=== PATIENT | male | born 1950 | race Caucasian/White ===

== ENCOUNTER 2019-12-29 10:04 | Emergency (ER) | payer OTHER, SELFPAY ==
[2019-12-29 10:28] VITALS: BP 169/83; PULSE 74; RESP 16; TEMP 37.1; O2SAT 97
--- NOTE | 2019-12-29 10:37 | ED.URI ---
HPI - URI/Sore Throat General Chief Complaint: Upper Respiratory Infection Stated Complaint: Sore Throat/Earache Time Seen by Provider: 12/29/19 10:38 Source: patient and RN notes reviewed Mode of arrival: ambulatory Limitations: no limitations History of Present Illness HPI Narrative: 69-year-old male with history of diabetes presents with concern for cough, chest congestion, ear pain, sore throat, nasal drainage, sinus pressure. Reports taking Tessalon Perles with no relief. Reports history of bronchitis. MD elicited complaint: sore throat Related Data Home Medications Medication Instructions Recorded Confirmed Vitamin B-12 12/29/19 Vitamin D2 12/29/19 aspirin 12/29/19 atenolol 100 mg PO DAILY 12/29/19 12/29/19 diazepam 12/29/19 flunisolide INTRANASAL 12/29/19 glimepiride mg 12/29/19 hydrochlorothiazide 25 mg PO DAILY 12/29/19 12/29/19 ketorolac 12/29/19 metformin mg 12/29/19 naproxen 12/29/19 polymyxin B sulf-trimethoprim 12/29/19 potassium chloride meq PO 12/29/19 prednisolone acetate 12/29/19 simvastatin mg 12/29/19 venlafaxine mg PO 12/29/19 Allergies Allergy/AdvReac Type Severity Reaction Status Date / Time No Known Allergies Allergy Verified 06/30/19 10:58 Review of Systems Review of Systems: Narrative: CONSTITUTIONAL: Reports malaise, fever. Denies chills, sweats EYES: Denies visual changes, redness, or discharge. ENT: Reports rhinorrhea, congestion, sinus pain, otalgia and sore throat. CARDIOVASCULAR: Denies chest pain, palpitations, or edema. RESPIRATORY: Reports cough, chest congestion. Denies dyspnea. GASTROINTESTINAL: Denies abdominal pain, nausea, vomiting, diarrhea SKIN: Denies rash or itching. MUSCULOSKELETAL: Reports myalgia. NEUROLOGIC: Denies headache. All systems reviewed & are unremarkable except as noted in HPI and below PMFSH Social History Social History Alcohol intake: current Comments At time of signature, agree with nursing past medical, surgical, social and family history. There is no relevant family history pertinent to the presenting complaint Exam Narrative: Exam Narrative: GENERAL: Well-appearing, well-nourished, and in no acute distress. HEAD: Normocephalic EYES: PERRLA, conjunctivae clear ENT: Nares clear, turbinates edematous and erythematous, sinus tenderness discharge. Mucous membranes moist. TM pearly charles with dull light reflex bilaterally; no tragal tenderness. Oropharynx erythematous without lesions. Tonsils enlarged and without exudate, no drooling, no hoarseness, no trismus. NECK: Supple. No lymphadenopathy CHEST: Clear to auscultation, breath sounds equal. No wheezing, rhonchi, rales, or stridor. No respiratory distress, speaks in full sentences. Cough noted HEART: Regular rate and rhythm. No murmur heard. Normal peripheral pulses. SKIN: Warm, dry, no rash. NEURO: Alert and oriented x3. PSYCH: Normal mood and affect Course Course Emergency Course: Patient is aware of diagnosis, understands and agrees to treatment plan. Anticipatory guidance given. Patient agrees to follow-up as directed and is aware of reasons to seek care at the emergency department. Portions of this record may have been created with voice recognition software Vital Signs Vital signs: Vital Signs Temperature 98.8 F 12/29/19 10:28 Pulse Rate 74 12/29/19 10:28 Respiratory Rate 16 12/29/19 10:28 Blood Pressure 169/83 H 12/29/19 10:28 Pulse Oximetry 97 12/29/19 10:28 Temperature 98.8 F 12/29/19 10:28 Pulse Rate 74 12/29/19 10:28 Respiratory Rate 16 12/29/19 10:28 Blood Pressure 169/83 H 12/29/19 10:28 Pulse Oximetry 97 12/29/19 10:28 Reviewed. Patient has current diagnosis of hypertension MDM - URI/Sore Throat MDM Narrative Medical decision making narrative: Differential diagnosis considered: Strep pharyngitis, allergic rhinitis, upper respiratory tract infection, sinusitis, rhinosinusitis, nasopharyngitis. viral pharyngitis, o
== END 2019-12-29 10:49 | disposition home or self-care (01) ==
PROVIDERS: Emergency Provider Nurse Practitioner; PCP Family Medicine Adolescent Medicine
DX: J32.9 Chronic sinusitis, unspecified (principal); J40 Bronchitis, not specified as acute or chronic; E78.00 Pure hypercholesterolemia, unspecified; I10 Essential (primary) hypertension; E55.9 Vitamin D deficiency, unspecified; E53.9 Vitamin B deficiency, unspecified; E11.9 Type 2 diabetes mellitus without complications; F41.9 Anxiety disorder, unspecified
CPT/HCPCS: 99213; G0463

== ENCOUNTER 2020-02-28 11:02 | Emergency (ER) | payer OTHER, SELFPAY ==
[2020-02-28 11:14] VITALS: BP 154/88; PULSE 54; RESP 16; TEMP 36; O2SAT 98
--- NOTE | 2020-02-28 11:26 | ED.URI ---
HPI - URI/Sore Throat General Chief Complaint: Upper Respiratory Infection Stated Complaint: sore throat Source: patient and RN notes reviewed Mode of arrival: ambulatory Limitations: no limitations History of Present Illness HPI Narrative: This is a 70 years old male presented to the office for an evaluation of right ear pain and head congestion for one week. Symptoms include head congestion, right ear pain and sore throat. Denies cough, fever. He tried otc ear drops with no relief. 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 Related Data Home Medications Medication Instructions Recorded Confirmed Vitamin B-12 12/29/19 Vitamin D2 12/29/19 aspirin 12/29/19 atenolol 100 mg PO DAILY 12/29/19 12/29/19 diazepam 12/29/19 flunisolide INTRANASAL 12/29/19 glimepiride mg 12/29/19 hydrochlorothiazide 25 mg PO DAILY 12/29/19 12/29/19 ketorolac 12/29/19 metformin mg 12/29/19 naproxen 12/29/19 polymyxin B sulf-trimethoprim 12/29/19 potassium chloride meq PO 12/29/19 prednisolone acetate 12/29/19 simvastatin mg 12/29/19 venlafaxine mg PO 12/29/19 lisinopril 02/28/20 loratadine 02/28/20 pantoprazole [Protonix] PO 02/28/20 sertraline 02/28/20 Allergies Allergy/AdvReac Type Severity Reaction Status Date / Time No Known Allergies Allergy Verified 06/30/19 10:58 Review of Systems Review of Systems: Narrative: CONSTITUTIONAL: Denies fever, chills ENT: Denies nasal congestion. Reports right ear pain and throat pain when he swallows only. CARDIOVASCULAR: Denies chest pain RESPIRATORY: Denies dyspnea, wheezing, cough GASTROINTESTINAL: Denies abdominal pain, nausea, vomiting SKIN: Denies rash MUSCULOSKELETAL: Denies acute back pain NEUROLOGIC: Denies lightheaded/dizziness PMFSH Past Medical History Medical History Anxiety Cataract, right eye Diabetes mellitus, type II Ganglion cyst of dorsum of right wrist 2015 Ganglion cyst of finger of left hand GERD (gastroesophageal reflux disease) HLD (hyperlipidemia) HTN (hypertension) PTSD (post-traumatic stress disorder) Vitamin deficiency Surgical History Surgical History S/P right knee arthroscopy Social History Social History (Updated 02/28/20 @ 11:59 by YOANDY Moreno) Smoking status: Never smoker Alcohol intake: current Comments At time of signature, I agree with nursing past medical, surgical, social and family history. There is no relevant family history pertinent to the presenting complaint. Exam Narrative: Exam Narrative: GENERAL: This is a well-nourished, well-developed patient, in no apparent distress. EYES:Sclera clear/white. Vision is grossly intact. EARS: External ears normal, tragal tenderness on right ear, right auditory canal appears erythem and edematou, left canal normal/clear and without drainage, bilateral TM noted fluid levell without bulging or perforation. Hearing grossly intact. NOSE: External nose normal with no obvious nasal discharge, nares without redness, no rhinorrhea. THROAT: Mucous membranes moist, posterior pharynx clear. NECK: Neck supple, non-tender without lymphadenopathy, masses or thyromegaly. CARDIOVASCULAR: Regular rate and rhythm without murmurs, gallops, or rubs. RESPIRATORY: Clear to auscultation. Breath sounds equal bilaterally. No wheezes, rales, or rhonchi. GASTROINTESTINAL: Abdomen soft, non-tender, nondistended. Bowel sounds are active. No guarding. NEURO: awake, alert, and oriented to person, place and time. There were no obvious focal neurologic abnormalities. Steady gait Marv Coma Scale Eye Opening: Spontaneous 4 Marv Coma Scale Motor: Obeys Commands 6 [place] Coma Scale Verbal: Oriented 5 Course Vital Signs Vital signs: Vital Signs Temperature 96.8 F L 02/28/20 11:14 Pulse Rate 54 L 02/28/20 11:14 Re
== END 2020-02-28 11:58 | disposition home or self-care (01) ==
PROVIDERS: Emergency Provider Nurse Practitioner; PCP Family Medicine Adolescent Medicine
DX: H60.331 Swimmer's ear, right ear (principal); H65.01 Acute serous otitis media, right ear; E11.9 Type 2 diabetes mellitus without complications; E78.5 Hyperlipidemia, unspecified; I10 Essential (primary) hypertension
CPT/HCPCS: 99213; G0463

== ENCOUNTER 2020-06-14 13:31 | Outpatient (CLI) | payer OTHER, SELFPAY ==
--- NOTE | 2020-06-14 | ECG_ITS ---
Measurements Intervals Josephine Rate: 56 P: 7 [place]: 204 QRS: -20 QRSD: 98 T: 34 QT: 423 QTc: 408 Interpretive Statements SINUS BRADYCARDIA WITH SINUS ARRHYTHMIA BORDERLINE AV CONDUCTION DELAY BORDERLINE R WAVE PROGRESSION, ANTERIOR LEADS BASELINE ARTIFACT- I, III, AVL, AVF, V4-V6 BORDERLINE ECG Electronically Signed On 06-14-2020 14:17:47 CDT by Ge Carbone D.O.
[2020-06-14 15:39] LABS: Anion Gap 10 mmol/L (8-16); Blood Urea Nitrogen 12 mg/dL (9-20); Calcium 9.4 mg/dL (8.4-10.2); Carbon Dioxide 26 mmol/L (22-30); Chloride 100 mmol/L (98-107); Estimated Glomerular Filt Rate > 60; Glucose 123 mg/dL (75-110); Sodium 136 mmol/L (137-145)
== END 2020-06-14 13:32 | disposition home or self-care (01) ==
PROVIDERS: PCP Family Medicine Adolescent Medicine; Visit Provider Podiatrist Foot & Ankle Surgery
DX: I10 Essential (primary) hypertension (principal); R94.31 Abnormal electrocardiogram [ECG] [EKG]
CPT/HCPCS: 36415; 80048; 93005

== ENCOUNTER 2020-11-22 10:54 | Emergency (ER) | payer OTHER, SELFPAY ==
[2020-11-22 11:06] VITALS: BP 149/80; PULSE 58; RESP 18; TEMP 36.4; O2SAT 99
--- NOTE | 2020-11-22 11:13 | ED.WOUNDLAC ---
HPI - Wound/Laceration General Chief Complaint: Wound/Laceration Stated Complaint: laceration left index finger History of Present Illness HPI narrative: This is a 70-year-old male comes in complaining of a laceration to his left second finger. Patient states that he cut it cutting a salad yesterday and placed a liquid Band-Aid on it today he went to take a shower and took off the bandage and it began to bleed. Patient states that he has had a tetanus shot within the last 5 years Related Data Home Medications Medication Instructions Recorded Confirmed Vitamin B-12 12/29/19 Vitamin D2 12/29/19 atenolol 100 mg PO DAILY 12/29/19 12/29/19 diazepam 12/29/19 flunisolide INTRANASAL 12/29/19 hydrochlorothiazide 25 mg PO DAILY 12/29/19 12/29/19 metformin mg 12/29/19 naproxen 12/29/19 potassium chloride meq PO 12/29/19 simvastatin mg 12/29/19 venlafaxine mg PO 12/29/19 lisinopril 02/28/20 sertraline 02/28/20 Allergies Allergy/AdvReac Type Severity Reaction Status Date / Time No Known Allergies Allergy Verified 11/22/20 10:59 Review of Systems Review of Systems: Narrative: CONSTITUTIONAL: Denies fever, chills, or sweats. EYES: Denies visual changes, redness, or discharge. ENT: Denies rhinorrhea, congestion, sore throat, or otalgia. CARDIOVASCULAR:Denies chest pain, palpitations, or edema. RESPIRATORY: Denies cough or dyspnea. GASTROINTESTINAL: Denies abdominal pain, nausea, vomiting, or diarrhea. GENITOURINARY: Denies dysuria or hematuria. SKIN:[Denies rash or itching. Left second finger laceration approximately 1 cm slightly approximately MUSCULOSKELETAL:Denies back pain, joint pain, or myalgia. NEUROLOGIC: Denies headache, numbness, or weakness. PSYCHIATRIC:Denies anxiety or depression [facility] Past Medical History Medical History (Updated 11/22/20 @ 11:27 by Kristin Michelle NP) Anxiety Cataract, right eye Diabetes mellitus, type II Ganglion cyst of dorsum of right wrist 2015 Ganglion cyst of finger of left hand GERD (gastroesophageal reflux disease) HLD (hyperlipidemia) HTN (hypertension) PTSD (post-traumatic stress disorder) Vitamin deficiency Surgical History Surgical History S/P right knee arthroscopy Social History Social History (Updated 02/28/20 @ 11:59 by YOANDY Moreno) Smoking status: Never smoker Alcohol intake: current Gender identity (if verbalized by the patient): Male Comments At time as signature, I have reviewed and agree with nursing past medical, social, surgical and family history. Please see nursing chart for further information. There is no relevant family history pertinent to the presenting complaint. Your blood pressure was elevated in the clinic today, I feel that this is due to your acute illness rather than essential hypertension. please follow-up with your regular doctor for further evaluation and monitor for evaluation of hypertension Please [facility] schedule a followup visit with your personal physician with in the next 1-4 weeks for further evaluation and treatment. Also, ask your personal physician to assist you regarding blood pressure. Even blood pressure exceeding 120/80 may indicate pre-hypertension. If your symptoms persist, change or worsen significantly before you can contact your personal physician then please, without delay, go to the emergency department for further evaluation. Exam Narrative: Exam Narrative: GENERAL:Well-appearing, well-nourished, and in no acute distress. HEAD:Normocephalic, atraumatic. EYES: PERRLA and EOMI. ENT: Nares clear, no rhinorrhea or epistaxis. Mucous membranes moist. NECK: Supple. CHEST: Clear to auscultation. No respiratory distress. HEART: Regular rate and rhythm. No murmur heard. Normal peripheral pulses. ABDOMEN: Soft, nontender, nondistended, normal active bowel sounds. EXTREMITIES: Normal range of motion. left second finger has slight bru
== END 2020-11-22 11:35 | disposition home or self-care (01) ==
PROVIDERS: Emergency Provider Nurse Practitioner Family; PCP Family Medicine Adolescent Medicine
DX: S61.211A Laceration without foreign body of left index finger without damage to nail, initial encounter (principal); W45.8XXA Other foreign body or object entering through skin, initial encounter; Y93.G1 Activity, food preparation and clean up; E11.9 Type 2 diabetes mellitus without complications; K21.9 Gastro-esophageal reflux disease without esophagitis; E78.5 Hyperlipidemia, unspecified; I10 Essential (primary) hypertension; E11.36 Type 2 diabetes mellitus with diabetic cataract; H26.9 Unspecified cataract; Z79.84 Long term (current) use of oral hypoglycemic drugs
CPT/HCPCS: 12001; 99212; G0463

== ENCOUNTER 2020-11-27 09:24 | Emergency (ER) | payer OTHER, SELFPAY ==
--- NOTE | 2020-11-27 09:35 | ED.WOUNDLAC ---
HPI - Wound/Laceration General Chief Complaint: Wound/Laceration Stated Complaint: laceration right index finger Time Seen by Provider: 11/27/20 09:36 Source: patient and RN notes reviewed Mode of arrival: ambulatory Limitations: no limitations History of Present Illness HPI narrative: 70-year-old male presents with concern for a wound that opened and bled. Reports he had Dermabond placed on a finger laceration 6 days ago. Reports he had Steri-Strips applied over the Dermabond. Reports he pulled the Steri-Strips off several days ago. Reports when he woke up this morning he noticed blood on the sheets and the wound had bled. He denies redness, swelling, purulent drainage, decreased sensation, range of motion of the digit. Related Data Home Medications Medication Instructions Recorded Confirmed atenolol 100 mg PO DAILY 12/29/19 11/27/20 diazepam 5 mg PO PRN PRN 12/29/19 11/27/20 flunisolide 25 mcg INTRANASAL BID 12/29/19 11/27/20 hydrochlorothiazide 25 mg PO DAILY 12/29/19 11/27/20 metformin 500 mg PO DAILY 12/29/19 11/27/20 naproxen 500 mg PO BID 12/29/19 11/27/20 lisinopril [Zestril] 10 mg PO DAILY 11/27/20 11/27/20 potassium 10 mg PO DAILY 11/27/20 11/27/20 sertraline [Zoloft] 100 mg PO DAILY 11/27/20 11/27/20 simvastatin 40 mg PO DAILY 11/27/20 11/27/20 Allergies Allergy/AdvReac Type Severity Reaction Status Date / Time No Known Allergies Allergy Verified 11/27/20 09:30 Review of Systems Review of Systems: Narrative: CONSTITUTIONAL: Denies malaise, chills, sweats, or fever. SKIN: Reports laceration on the second digit of the left hand MUSCULOSKELETAL: Denies muscle skeletal pain NEUROLOGIC: Denies numbness, weakness All systems reviewed & are unremarkable except as noted in HPI and below PMFSH Past Medical History Medical History (Updated 11/27/20 @ 09:53 by Jolene Holloway NP) Anxiety Cataract, right eye Diabetes mellitus, type II Ganglion cyst of dorsum of right wrist 2015 Ganglion cyst of finger of left hand GERD (gastroesophageal reflux disease) HLD (hyperlipidemia) HTN (hypertension) PTSD (post-traumatic stress disorder) Vitamin deficiency Surgical History Surgical History S/P right knee arthroscopy Social History Social History (Updated 02/28/20 @ 11:59 by YOANDY Moreno) Smoking status: Never smoker Alcohol intake: current Gender identity (if verbalized by the patient): Male Comments At time of signature, agree with nursing past medical, surgical, social and family history. There is no relevant family history pertinent to the presenting complaint Exam Narrative: Exam Narrative: GENERAL: Well-appearing, well-nourished, and in no acute distress. HEAD: Normocephalic EYES: PERRLA, conjunctivae clear NECK: Supple. CHEST: Speaks in full sentences. No respiratory distress. HEART: Regular rate and rhythm. Normal and equal peripheral pulses. EXTREMITIES: Second edge of left hand has normal strength and sensation. 5/5 strength with digit flexion, extension. Range of motion normal. No clubbing, cyanosis, or edema noted. No tenderness. Normal digital cascade with flexion of fingers, median, ulnar and radial nerve intact. Normal sensation of each side of finger. Can perform 'okay' sign, 'cross over finger test of index and middle fingers' and 'thumbs up' sign. No scissoring. Normal thumb opposition. Good capillary refill and radial pulse. Distal capillary refill less than 3 seconds. SKIN: Warn, dry, intact, pink. 1 cm laceration, and later stages of healing, edges without induration, erythema, edema, tissue bed red. No bleeding. NEURO: Alert and oriented x3. PSYCH: Normal mood and affect Course Course Emergency Course: Steri-Strips applied to wound. No other closure needed at this time. Instructions given to patient for caring for wound. Patient is aware of diagnosis, understands and agrees to treatment plan. Anticipatory leopoldo
[2020-11-27 09:36] VITALS: BP 161/100; PULSE 51; RESP 18; TEMP 35.9; O2SAT 100
== END 2020-11-27 09:57 | disposition home or self-care (01) ==
PROVIDERS: Emergency Provider Nurse Practitioner; PCP Family Medicine Adolescent Medicine
DX: S61.210D Laceration without foreign body of right index finger without damage to nail, subsequent encounter (principal); X58.XXXD Exposure to other specified factors, subsequent encounter; E11.36 Type 2 diabetes mellitus with diabetic cataract; H26.9 Unspecified cataract; K21.9 Gastro-esophageal reflux disease without esophagitis; E78.5 Hyperlipidemia, unspecified; I10 Essential (primary) hypertension; F41.9 Anxiety disorder, unspecified
CPT/HCPCS: 99212; G0463

== ENCOUNTER 2022-04-28 09:54 | Emergency (ER) | payer OTHER, SELFPAY ==
[2022-04-28 10:06] VITALS: BP 132/79; PULSE 62; RESP 18; TEMP 36; O2SAT 100
--- NOTE | 2022-04-28 10:08 | ED.SKABFB ---
HPI - Skin/Abscess/Foreign Bdy General Chief complaint: Skin/Abscess/Foreign Body Stated complaint: UTI Time Seen by Provider: 04/28/22 10:08 Source: patient Mode of arrival: ambulatory Limitations: no limitations History of Present Illness HPI narrative: 72 yo M presents with c/o burning, itchy rash to head of penis for several wks. States at least 2 to 3 wks. Has been apply a moisturizing lotion with no relief. Reports tender to some areas on palpation. Today he became fed up with rash and finally spoke to his daughter about it. His daughter is an [employer]. About a month ago he started jardiance. Daughter stating he has UTI from medication. Pt denies urinary frequency, urgency, dysuria. No ABD or back pain. denies fever/chills. all systems reviewed and negative except as noted above. Related Data Home Medications Medication Instructions Recorded Confirmed atenolol 100 mg tablet 100 mg PO DAILY 12/29/19 03/14/22 diazepam 5 mg tablet 5 mg PO PRN PRN Anxiety 12/29/19 11/27/20 simvastatin 80 mg tablet 40 mg PO DAILY 11/27/20 03/14/22 alogliptin 25 mg tablet 25 mg PO DAILY 11/14/21 03/14/22 cholecalciferol (vitamin D3) 25 25 mcg PO DAILY 11/14/21 03/14/22 mcg (1,000 unit) capsule fluticasone propionate 50 2 spray intranasal DAILY 11/14/21 03/14/22 mcg/actuation nasal spray,suspension loratadine 10 mg tablet 10 mg PO DAILY 11/14/21 03/14/22 multivitamin 1 tablet PO DAILY 11/14/21 11/14/21 pantoprazole 20 mg tablet,delayed 20 mg PO QAM 11/14/21 03/14/22 release potassium chloride 20 mEq 10 meq PO DAILY 11/14/21 03/14/22 tablet,extended release venlafaxine 150 mg 150 mg PO DAILY 11/14/21 03/14/22 capsule,extended release 24 hr blood sugar diagnostic (Accu-Chek 03/14/22 03/14/22 Guide test strips) blood-glucose meter (Accu-Chek 03/14/22 03/14/22 Guide Glucose Meter) clotrimazole 1 % topical cream 1 applic topical Q12H 03/14/22 03/14/22 (Antifungal (clotrimazole)) cyanocobalamin (vitamin B-12) 1,000 mcg PO DAILY 03/14/22 03/14/22 1,000 mcg capsule hydrophilic 1 applic topical .QD PRN 03/14/22 03/14/22 lancets (Accu-Chek Softclix 03/14/22 03/14/22 Lancets) lisinopril 10 mg tablet (Zestril) 20 mg PO DAILY 03/14/22 03/14/22 terbinafine HCl 1 % topical cream 1 applic topical BID 03/14/22 03/14/22 (Antifungal (terbinafine)) Allergies Allergy/AdvReac Type Severity Reaction Status Date / Time empagliflozin AdvReac Mild choking Verified 11/14/21 11:06 [From Jardiance] metformin AdvReac Mild diarrhea Verified 11/14/21 11:06 Review of Systems Review of Systems: CONSTITUTIONAL: Denies fever, chills, or sweats. EYES: Denies visual changes, redness, or discharge. ENT: Denies rhinorrhea, congestion, sore throat, or otalgia. CARDIOVASCULAR: Denies chest pain, palpitations, or edema. RESPIRATORY: Denies cough or dyspnea. GASTROINTESTINAL: Denies abdominal pain, nausea, vomiting, or diarrhea. GENITOURINARY: Denies dysuria or hematuria. SKIN: Reports burning, itchy rash to head of penis. MUSCULOSKELETAL: Denies back pain, joint pain, or myalgia. NEUROLOGIC: Denies headache, numbness, or weakness. PSYCHIATRIC: Denies anxiety or depression. All other systems reviewed are negative, except as documented in HPI. [facility] Past Medical History Medical History (Updated 04/28/22 @ 10:27 by Jaja Clark NP) Anxiety Cataract, right eye Diabetes mellitus, type II Ganglion cyst of dorsum of right wrist 2014 Ganglion cyst of finger of left hand GERD (gastroesophageal reflux disease) HLD (hyperlipidemia) HTN (hypertension) Normal colonoscopy 06/21 Repeat 07/01 PTSD (post-traumatic stress disorder) Vitamin deficiency Surgical History Surgical History (Updated 11/14/21 @ 11:05 by Hans Hatch MD) S/P right knee arthroscopy 2002 Family History Family History (Updated 11/14/21 @ 13:06 by Kylie Reilly MA) Father Acute myocardial infarction Heart disease Hypertension Social His
== END 2022-04-28 10:18 | disposition home or self-care (01) ==
PROVIDERS: Emergency Provider Nurse Practitioner Family; PCP Family Medicine Adolescent Medicine
DX: B37.42 Candidal balanitis (principal); E11.9 Type 2 diabetes mellitus without complications; K21.9 Gastro-esophageal reflux disease without esophagitis; E78.5 Hyperlipidemia, unspecified; I10 Essential (primary) hypertension; H26.9 Unspecified cataract; F41.9 Anxiety disorder, unspecified
CPT/HCPCS: 81003; 99213; G0463

== ENCOUNTER 2023-01-29 08:45 | Emergency (ER) | payer OTHER, SELFPAY ==
[2023-01-29 08:56] VITALS: BP 137/75; PULSE 55; RESP 16; TEMP 35.8; O2SAT 98
--- NOTE | 2023-01-29 09:43 | ED.URI ---
HPI - URI/Sore Throat General Chief Complaint: Upper Respiratory Infection Stated Complaint: Sore Throat/ Headache Time Seen by Provider: 01/29/23 09:43 Source: patient Mode of arrival: ambulatory Limitations: no limitations History of Present Illness HPI Narrative: 73-year-old male presents with complaint cough, nasal congestion, headaches, body aches, chills, generalized fatigue for 3 days. Afebrile. Denies chest pain and shortness of breath. Reports he had diarrhea yesterday. No nausea vomiting. Patient had exposure to COVID 5 days ago. Patient is COVID vaccinated. All systems reviewed and negative except as noted above. Related Data Home Medications Medication Instructions Recorded Confirmed simvastatin 80 mg tablet 40 mg PO DAILY 11/27/20 01/29/23 alogliptin 25 mg tablet 25 mg PO DAILY 11/14/21 01/29/23 cholecalciferol (vitamin D3) 25 25 mcg PO DAILY 11/14/21 01/29/23 mcg (1,000 unit) capsule loratadine 10 mg tablet 10 mg PO DAILY 11/14/21 01/29/23 multivitamin 1 tablet PO DAILY 11/14/21 01/29/23 pantoprazole 20 mg tablet,delayed 20 mg PO QAM 11/14/21 01/29/23 release potassium chloride 20 mEq 10 meq PO DAILY 11/14/21 01/29/23 tablet,extended release blood sugar diagnostic (Accu-Chek 03/14/22 01/29/23 Guide test strips) blood-glucose meter (Accu-Chek 03/14/22 01/29/23 Guide Glucose Meter) clotrimazole 1 % topical cream 1 applic topical Q12H 03/14/22 01/29/23 (Antifungal (clotrimazole)) cyanocobalamin (vitamin B-12) 1,000 mcg PO DAILY 03/14/22 01/29/23 1,000 mcg capsule hydrophilic 1 applic topical .QD PRN Dry Skin 03/14/22 01/29/23 lancets (Accu-Chek Softclix 03/14/22 01/29/23 Lancets) lisinopril 10 mg tablet (Zestril) 20 mg PO DAILY 03/14/22 01/29/23 terbinafine HCl 1 % topical cream 1 applic topical BID 03/14/22 01/29/23 (Antifungal (terbinafine)) hydrochlorothiazide 25 mg tablet 25 mg PO DAILY 01/29/23 01/29/23 Allergies Allergy/AdvReac Type Severity Reaction Status Date / Time semaglutide [From Ozempic] AdvReac Intermediate Other Verified 01/29/23 09:29 empagliflozin AdvReac Mild choking Verified 01/29/23 09:29 [From Jardiance] Review of Systems Review of Systems: CONSTITUTIONAL: Denies fever, chills, or sweats. reports fatigue. EYES: Denies visual changes, redness, or discharge. ENT: Reports rhinorrhea, congestion, sore throat. Denies otalgia. CARDIOVASCULAR: Denies chest pain, palpitations, or edema. RESPIRATORY: Reports cough. Denies dyspnea. GASTROINTESTINAL: Denies abdominal pain, nausea, vomiting, or diarrhea. GENITOURINARY: Denies dysuria or hematuria. SKIN: Denies rash or itching. MUSCULOSKELETAL: Denies back pain, joint pain, or myalgia. NEUROLOGIC: Denies headache, numbness, or weakness. PSYCHIATRIC: Denies anxiety or depression. All other systems reviewed are negative, except as documented in HPI. [facility] Past Medical History Medical History Anxiety Cataract, right eye Diabetes mellitus, type II Ganglion cyst of dorsum of right wrist 2015 Ganglion cyst of finger of left hand GERD (gastroesophageal reflux disease) HLD (hyperlipidemia) HTN (hypertension) Normal colonoscopy 06/21 Repeat 07/01 PTSD (post-traumatic stress disorder) Vitamin deficiency Surgical History Surgical History S/P right knee arthroscopy 2002 Family History Family History Father Acute myocardial infarction Heart disease Hypertension Social History Social History Smoking status: Never smoker Second hand tobacco smoke exposure: No Alcohol intake: current Drinks per week: 3 Substance use: never Substance use type: does not use Living arrangements: with family Occupation/Education: retired Gender identity (if verbalized by the patient)
== END 2023-01-29 10:18 | disposition home or self-care (01) ==
PROVIDERS: Emergency Provider Nurse Practitioner Family; PCP Family Medicine Adolescent Medicine
DX: U07.1 COVID-19 (principal); E11.9 Type 2 diabetes mellitus without complications; K21.9 Gastro-esophageal reflux disease without esophagitis; E78.5 Hyperlipidemia, unspecified; I10 Essential (primary) hypertension; H26.9 Unspecified cataract
CPT/HCPCS: 87081; 87426; 87804; 87880; 99213; C9803; G0463

== ENCOUNTER 2023-01-31 08:57 | Emergency (ER) | payer OTHER, SELFPAY ==
--- NOTE | ~2023-01-31 | XR_ITS ---
EXAMINATION: XR chest 1V portable DATE: 01/31/2023 10:33 INDICATION: Cough. Fever. COVID-19 positive. TECHNIQUE: A single frontal view of the chest was obtained. COMPARISON: Chest 2 views 01/25/2016 FINDINGS: There is mild atelectasis at the lung bases. No pleural effusion or pneumothorax. The heart size is normal. IMPRESSION: 1. Mild atelectasis at the lung bases. Reviewed, dictated and finalized at location A.
[2023-01-31 09:00] VITALS: O2SAT 100
[2023-01-31 09:08] VITALS: BP 155/91; PULSE 77; RESP 18; TEMP 37.6; O2SAT 96
--- NOTE | 2023-01-31 09:21 | ED.FEVER ---
HPI - Fever General Chief Complaint: Fever Stated Complaint: fever, covid Time Seen by Provider: 01/31/23 09:18 History of Present Illness HPI Narrative: 73-year-old male history of high blood pressure, diabetes, dyslipidemia presents to the emergency room from the urgent care for further evaluation. Patient was recently diagnosed with COVID and coughed up sputum once. He has had a low-grade fever. Urgent care wanted him to be further assessed for fear that he might have a COVID-pneumonia or dehydrated. On presentation, patient states that he feels fine and does not have any complaints. Denies any shortness of breath, chest pain, nausea or vomiting. Patient was started on an antiviral, and he states that it is not alleviating his symptoms. Related Data Home Medications Medication Instructions Recorded Confirmed simvastatin 80 mg tablet 40 mg PO DAILY 11/27/20 01/29/23 alogliptin 25 mg tablet 25 mg PO DAILY 11/14/21 01/29/23 cholecalciferol (vitamin D3) 25 25 mcg PO DAILY 11/14/21 01/29/23 mcg (1,000 unit) capsule loratadine 10 mg tablet 10 mg PO DAILY 11/14/21 01/29/23 multivitamin 1 tablet PO DAILY 11/14/21 01/29/23 pantoprazole 20 mg tablet,delayed 20 mg PO QAM 11/14/21 01/29/23 release potassium chloride 20 mEq 10 meq PO DAILY 11/14/21 01/29/23 tablet,extended release blood sugar diagnostic (Accu-Chek 03/14/22 01/29/23 Guide test strips) blood-glucose meter (Accu-Chek 03/14/22 01/29/23 Guide Glucose Meter) clotrimazole 1 % topical cream 1 applic topical Q12H 03/14/22 01/29/23 (Antifungal (clotrimazole)) cyanocobalamin (vitamin B-12) 1,000 mcg PO DAILY 03/14/22 01/29/23 1,000 mcg capsule hydrophilic 1 applic topical .QD PRN Dry Skin 03/14/22 01/29/23 lancets (Accu-Chek Softclix 03/14/22 01/29/23 Lancets) lisinopril 10 mg tablet (Zestril) 20 mg PO DAILY 03/14/22 01/29/23 terbinafine HCl 1 % topical cream 1 applic topical BID 03/14/22 01/29/23 (Antifungal (terbinafine)) hydrochlorothiazide 25 mg tablet 25 mg PO DAILY 01/29/23 01/29/23 Allergies Allergy/AdvReac Type Severity Reaction Status Date / Time semaglutide [From Ozempic] AdvReac Intermediate Other Verified 01/31/23 09:15 empagliflozin AdvReac Mild choking Verified 01/31/23 09:15 [From Jardiance] Review of Systems Review of Systems: CONSTITUTIONAL: Per HPI, reports fever EYES: Denies visual changes, redness, or discharge. ENT: Reports sinus congestion, postnasal drip CARDIOVASCULAR: Denies chest pain, palpitations, or edema. RESPIRATORY: Denies cough or dyspnea. GASTROINTESTINAL: Denies abdominal pain, nausea, vomiting, or diarrhea. GENITOURINARY: Denies dysuria or hematuria. SKIN: Denies rash or itching. MUSCULOSKELETAL: Denies back pain, joint pain, or myalgia. NEUROLOGIC: Denies headache, numbness, dizziness, or weakness. PSYCHIATRIC: Denies anxiety or depression. [facility] Past Medical History Medical History Anxiety Cataract, right eye Diabetes mellitus, type II Ganglion cyst of dorsum of right wrist 2015 Ganglion cyst of finger of left hand GERD (gastroesophageal reflux disease) HLD (hyperlipidemia) HTN (hypertension) Normal colonoscopy 06/21 Repeat 07/01 PTSD (post-traumatic stress disorder) Vitamin deficiency Surgical History Surgical History S/P right knee arthroscopy 2002 Family History Family History Father Acute myocardial infarction Heart disease Hypertension Social History Social History Smoking status: Never smoker Second hand tobacco smoke exposure: No Alcohol intake: current Drinks per week: 3 Substance use: never Substance use type: does not use Living arrangements: with family Occupation/Education: retired Gender identity (if verbalized by the patient): Manfred
[2023-01-31 10:20] LABS: Basophils Absolute Auto 0.1 K/mm3 (0.0-0.1); Basophils Percent Auto 0.8 % (0.2-1.2); Eosinophils Absolute Auto 0.1 K/mm3 (0-0.3); Hematocrit 43.5 % (42.0-52.0); Hemoglobin 14.6 g/dL (14.0-18.0); Immature Granulocyte Absolute 0.06 K/mm3 (0.00-0.031); Immature Granulocyte Percent A 0.6 % (0-0.5); Lymphocytes Absolute Auto 0.81 K/mm3 (0.9-3.2); Lymphocytes Percent Auto 7.5 % (18.3-44.2); Mean Corpuscular HGB Conc 33.6 g/dl (32-36); Mean Corpuscular Hemoglobin 29.7 pg (26-34); Mean Corpuscular Volume 88.6 fl (80-100); Mean Platelet Volume 10.6 fl (7.4-10.4); Monocytes Absolute Auto 0.9 K/mm3 (0.1-0.6); Monocytes Percent Auto 8.1 % (2.6-8.5); Neutrophils Absolute Auto 8.9 K/mm3 (1.3-6.7); Platelet Count Result 380 k/mm3 (150-375); Red Blood Count 4.91 M/mm3 (4.6-6.20); Red Cell Distribution Width 15.5 % (11.5-14.5); White Blood Count 10.8 K/mm3 (4.5-10.0)
[2023-01-31] MEDS: SODIUM CHLORIDE 0.9% IV 1,000 ML 999 ML IV CONT (10:26)
[2023-01-31 10:34] LABS: Alanine Aminotransferase 19 U/L (6-50); Alkaline Phosphatase 56 U/L (38-126); Anion Gap 11 mmol/L (8-16); Aspartate Amino Transferase 21 U/L (17-59); Bilirubin,Total 0.7 mg/dL (0.2-1.3); Blood Urea Nitrogen 14 mg/dL (9-20); Calcium 8.8 mg/dL (8.4-10.2); Carbon Dioxide 26 mmol/L (22-30); Chloride 99 mmol/L (98-107); Estimated CRCL calculation 82 ml/min; Estimated Glomerular Filt Rate > 60; Glucose 168 mg/dL (65-110); Lactic Acid Reflex 2.1 mmol/L (0.7-2.0); Potassium 4.5 mmol/L (3.4-5.0); Sodium 136 mmol/L (137-145)
[2023-01-31 11:10] VITALS: RESP 20
[2023-01-31 11:13] VITALS: BP 130/76; PULSE 64; RESP 10; O2SAT 99
[2023-01-31 13:18] LABS: Reflex Lactic Acid Yes or No Add Lactic
== END 2023-01-31 11:16 | disposition home or self-care (01) ==
PROVIDERS: Emergency Provider Nurse Practitioner Family; PCP Family Medicine Adolescent Medicine
DX: U07.1 COVID-19 (principal); E11.9 Type 2 diabetes mellitus without complications; K21.9 Gastro-esophageal reflux disease without esophagitis; I10 Essential (primary) hypertension; E78.5 Hyperlipidemia, unspecified; Z79.84 Long term (current) use of oral hypoglycemic drugs
CPT/HCPCS: 36415; 71045; 80053; 83605; 85025; 96360; 99283; J7030